=== PATIENT | female | born 1985 | race Caucasian/White ===

== ENCOUNTER 2018-09-17 11:34 | Emergency (ER) | payer MEDICAID ==
[~2018-09-17] VITALS: Ht 167.6 cm; Wt 58.3 kg
[~2018-09-17 11:34] MED LIST: PREN1TAB49
[2018-09-17 11:37] VITALS: Ht 167.6 cm; Wt 58.3 kg
--- NOTE | 2018-09-17 12:57 | ERD ---
ER Documentation Chief Complaint Chief Complaint Complaibns of left knee pain after a fall 3 days ago HPI 33-year-old female presents with complaint of left knee pain times 3 days status post mechanical fall downstairs. Patient denies head trauma loss of consciousness or dizziness prior to fall. Patient notes pain has increased over the past 3 days has not used any medication for the pain other than an aspirin today. She rates the pain as 10 out of 10 is able to bear weight but notes pain with ambulation. Denies fevers swelling or warmth of the knee. ROS All systems reviewed and are negative except as per history of present illness. Medications Home Meds Active Scripts Ibuprofen* (Motrin*) 600 Mg Tab, 600 MG PO Q6 for Pain/Inflammation, #30 TAB Prov:MELISSA RYAN PA-C 09/17/18 Reported Medications Vits W-Ca,Fe,Fa(<1MG) () 1 Tab Tablet 11/07/09 Allergies Allergies: Coded Allergies: Penicillins (Verified Allergy, Mild, HIVE, 11/07/09) PMhx/Soc Medical and Surgical Hx: pt denies Medical Hx, pt denies Surgical Hx Hx Alcohol Use: No Hx Substance Use: No Hx Tobacco Use: No Smoking Status: Never smoker Physical Exam Vitals Vital Signs Date Temp Pulse Resp B/P (MAP) Pulse Ox O2 O2 Flow FiO2 Time Delivery Rate 09/17/18 98.6 102 20 116/57 100 11:37 (76) Physical Exam Const: No acute distress Head: Atraumatic Eyes: Normal Conjunctiva ENT: Normal External Ears, Nose and Mouth. Neck: Full range of motion. No meningismus. Resp: Clear to auscultation bilaterally Cardio: Regular rate and rhythm, no murmurs Skin: No petechiae or rashes. 3 cm round superficial abrasion to the left knee, no visible signs of infection, healing well. Back: No midline or flank tenderness Ext: No cyanosis, or edema. Positive tenderness to palpation of the left knee but no palpation to the left tibial plateau. Popliteal pulse 2+. No visible edema, no ecchymosis, no warmth, no erythema. Full range of motion of the affected knee with no crepitus. No laxity with varus or valgus stress. Patient able to ambulate and bear weight. Brisk cap refill Neur: Awake and alert Psych: Normal Mood and Affect Results 24 hrs Current Medications Medications Dose Sig/Oscar Start Time Status Last (Trade) Ordered Route PRN Stop Time Admin Dose Reason Admin Ibuprofen 600 mg ONCE ONCE 09/17/18 DC 09/17/18 (Motrin) PO 13:00 13:16 09/17/18 13:01 Procedures/MDM PROCEDURE: XR left knee CLINICAL INDICATION: Fall 8 days ago. TECHNIQUE: Three views of the left knee were obtained. COMPARISON: None. FINDINGS: There is no acute fracture or dislocation. Osseous structures are intact. Joint spaces are maintained. There is no knee joint effusion. IMPRESSION: 1. No acute osseous abnormality. RPTAT: HR[facility] Physician Iftikhar Date Time Electronically viewed and signed by Physician Iftikhar on 09/17/2018 13:21 RF/ CC: MELISSA RYAN PA-C [id number] [facility] 01:45P: This is an otherwise healthy 33-year-old female who presents to the ED with complaint of left knee pain status post mechanical fall. On exam full extension flexion of the affected knee no joint crepitus no visible edema ecchymosis warmth, no calf tenderness or swelling popliteal pulse 2+ physical exam findings otherwise unremarkable. X-ray imaging negative for acute fracture or dislocation. Based off clinical presentation exam and x-ray findings very low suspicion for fracture, bursitis, or septic knee. Patient stable for discharge at this time will be placed in the immobilizer and crutches. Patient counseled on rice and use of NSAIDs for pain and inflammation advised to follow- up with PCP within the next 1-2 days for follow-up. Advised may need further follow-up imaging if pain persists to rule out tendon, ligament, or muscle involvement. Patient expressed verbal understanding and agreement to treatment plan. all questions addressed and answered. Departure Diagnosis: Primary Impression: Knee pain Additional Impression: Contusion, knee Condition: Stable MELISSA RYAN PA-C Sep 17, 2018 12:57
[2018-09-17] MEDS ORDERED: IBUPROFEN 600 MG TAB PO ONE (13:00)
[2018-09-17] MEDS ORDERED: IBUP-1542 PO (13:50)
== END 2018-09-17 15:05 | disposition home or self-care (01) ==
LOC: FTE 11:34
DX: S80.02XA Contusion of left knee, initial encounter (principal); W10.9XXA Fall (on) (from) unspecified stairs and steps, initial encounter; Y92.9 Unspecified place or not applicable
CPT/HCPCS: 29505; 73562; Z7610